=== PATIENT | female | born 1965 | race Caucasian/White ===

== ENCOUNTER 2016-05-14 21:35 | Emergency (ER) | payer OTHER ==
[2016-05-14 22:12] VITALS: BP 158/88; RESP 95; TEMP 97.7; O2SAT 100
== END 2016-05-14 22:39 | disposition home or self-care (01) | DRG 556 ==
LOC: ED 21:35
DX: M25.561 Pain in right knee (principal); M25.461 Effusion, right knee
CPT/HCPCS: 73560; 99282; L1830

== ENCOUNTER 2016-05-29 09:00 | Outpatient (CLI) | payer OTHER ==
[2016-05-14 22:12] VITALS: O2SAT 100
== END 2016-05-29 09:01 | disposition home or self-care (01) | DRG 561 ==
LOC: CONVCARE 09:00
PROVIDERS: ATTEND Orthopaedic Surgery
DX: S82.141D Displaced bicondylar fracture of right tibia, subsequent encounter for closed fracture with routine healing (principal); S83.241D Other tear of medial meniscus, current injury, right knee, subsequent encounter; S83.511D Sprain of anterior cruciate ligament of right knee, subsequent encounter; S83.411D Sprain of medial collateral ligament of right knee, subsequent encounter
CPT/HCPCS: 73700

== ENCOUNTER 2016-06-19 09:20 | Outpatient (CLI) | payer OTHER ==
[2016-05-14 22:12] VITALS: O2SAT 100
== END 2016-06-19 09:21 | disposition home or self-care (01) | DRG 561 ==
LOC: CONVCARE 09:20
PROVIDERS: ATTEND Orthopaedic Surgery
DX: S82.141D Displaced bicondylar fracture of right tibia, subsequent encounter for closed fracture with routine healing (principal); S83.241D Other tear of medial meniscus, current injury, right knee, subsequent encounter; S83.511D Sprain of anterior cruciate ligament of right knee, subsequent encounter; S83.411D Sprain of medial collateral ligament of right knee, subsequent encounter
CPT/HCPCS: 73564

== ENCOUNTER 2016-07-17 09:03 | Outpatient (CLI) | payer OTHER ==
[2016-05-14 22:12] VITALS: O2SAT 100
== END 2016-07-17 09:04 | disposition home or self-care (01) | DRG 561 ==
LOC: CONVCARE 09:03
PROVIDERS: ATTEND Orthopaedic Surgery
DX: S82.141D Displaced bicondylar fracture of right tibia, subsequent encounter for closed fracture with routine healing (principal); M17.11 Unilateral primary osteoarthritis, right knee; S83.511D Sprain of anterior cruciate ligament of right knee, subsequent encounter
CPT/HCPCS: 73564